=== PATIENT | male | born 1980 | race American Indian/Alaskan Native ===

== ENCOUNTER 2019-11-26 18:16 | Emergency (ER) | payer OTHER ==
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
[2019-11-26 20:38] VITALS: BP 151/64
--- NOTE | 2019-11-26 22:00 | XRay Report ---
LUMBAR SPINE 3 VIEWS INDICATION / CLINICAL INFORMATION: lower backj pain. COMPARISON: None available. FINDINGS: No significant skeletal abnormality. Alignment is normal. Signer Name: Billy Orta MD FACJonathan Signed: 11/26/2019 9:56 PM Workstation Name: [id number]
== END 2019-11-26 22:16 | disposition home or self-care (01) ==
LOC: ED 18:16
DX: S39.012A Strain of muscle, fascia and tendon of lower back, initial encounter (principal); V89.2XXA Person injured in unspecified motor-vehicle accident, traffic, initial encounter; Y93.89 Activity, other specified; Y92.410 Unspecified street and highway as the place of occurrence of the external cause; Y99.8 Other external cause status
CPT/HCPCS: 72100; 99283